=== PATIENT | female | born 1970 | race Caucasian/White ===

== ENCOUNTER 2016-10-26 01:23 | Emergency (ER) | payer OTHER ==
[~2016-10-26] VITALS: Ht 165.1 cm; Wt 77.1 kg
[~2016-10-26 01:23] MED LIST: ESTR0.623
--- NOTE | 2016-10-26 01:35 | NUR ---
PT C/O TOOTH ACHE X2 DAYS. PT HERE FOR WORSENING PAIN 10/10 ACHING
[2016-10-26] MEDS ORDERED: KETOROLAC TROMETHAMINE 60 MG INJ IM ONE ×2 (01:45→01:56)
[2016-10-26] MEDS ORDERED: HYDROCODONE/APAP 10-325 MG TABLET PO ONE (01:45)
[2016-10-26] MEDS ORDERED: HYDROCODONE/APAP 10-325 MG TABLET ONE (01:56)
[2016-10-26] MEDS ORDERED: PENICILLIN G BENZATHINE 2.4 MMU/4 ML DISP.SYRIN IM ONE (02:02)
--- NOTE | 2016-10-26 02:10 | NUR ---
DR RENE REQUESTING FOR PENICILLIN G BENZATHINE 1.2MMU IM. ONLY AVAILABLE DOSE IS PENICILLIN 2.4MMU/4ML. DR RENE OK TO GIVE PENICILLIN G 2.4MMU IM AND WASTE 1.2MMU(2ML) AND GIVE THE OTHER HALF OF PENICILLIN 1.2MMU(2ML). GAVE 1.2MMU IM LEFT BUTTOCK AT 0202
--- NOTE | 2016-10-26 02:53 | NUR ---
Patient discharged to home in stable conditon WITH FRIEND TAKING PT HOME. Written and verbal after care instructions given. Patient verbalizes understanding of instructions. WALKED OUT OF ER WITH STEADY GAIT
[2016-10-26 02:54] VITALS: BP 128/89
== END 2016-10-26 02:56 | disposition home or self-care (01) ==
LOC: ER 01:24
DX: K08.89 Other specified disorders of teeth and supporting structures (principal); Z90.710 Acquired absence of both cervix and uterus; Z90.49 Acquired absence of other specified parts of digestive tract
CPT/HCPCS: A4663; J1885

== ENCOUNTER 2017-08-13 21:22 | Emergency (ER) | payer OTHER ==
--- NOTE | 2017-08-13 22:12 | NUR ---
No answer in WR
== END 2017-08-13 22:12 | disposition left against medical advice (07) ==
LOC: ER 21:23
DX: Z53.21 Procedure and treatment not carried out due to patient leaving prior to being seen by health care provider (principal)

== ENCOUNTER 2019-06-05 21:44 | Emergency (ER) | payer MEDICAID, OTHER ==
[~2019-06-05] VITALS: Ht 165.1 cm; Wt 68.0 kg
--- NOTE | 2019-06-05 22:08 | NUR ---
pt ambulating with steady gait. Family at bedside. A&O x4. c/o low back pain radiating to BLE that started today when patient was cleaning. able to move extremities. speech is clear and able to make needs known / follow commands. Breathing even and unlabored. Denies any SOB. denies any / GI distress
--- NOTE | 2019-06-05 22:20 | NUR ---
Dr. Mcmanus at bedside for MSE
[2019-06-05] MEDS ORDERED: ONDANSETRON ODT 4 MG TAB.RAPDIS ONE (22:29)
[2019-06-05] MEDS ORDERED: MORPHINE SULFATE 4 MG/1 ML DISP.SYRIN IM ONE (22:30)
[2019-06-05] MEDS ORDERED: MORPHINE SULFATE 4 MG/1 ML DISP.SYRIN ONE (22:30)
[2019-06-05] MEDS ORDERED: MORPHINE SULFATE 2 MG/1 ML DISP.SYRIN ONE (22:30)
[2019-06-05] MEDS ORDERED: ONDANSETRON ODT 4 MG TAB.RAPDIS SL ONE (22:30)
[2019-06-05] MEDS ORDERED: HYDROMORPHONE 1 MG/1 ML DISP.SYRIN IM ONE (23:30)
[2019-06-05] MEDS ORDERED: HYDROMORPHONE 1 MG/1 ML DISP.SYRIN ONE (23:31)
--- NOTE | 2019-06-06 00:17 | NUR ---
Patient discharged to home in stable conditon. patient ambulating with steady gait. Written and verbal after care instructions given. Instructed patient not to drive. Daughter present at bedside and stated that she will be driving. Patient and family verbalizes understanding of instructions.
[2019-06-06 00:18] VITALS: BP 114/66
== END 2019-06-06 00:17 | disposition home or self-care (01) ==
LOC: ER 21:44
DX: M54.41 Lumbago with sciatica, right side (principal); Z90.49 Acquired absence of other specified parts of digestive tract; Z90.710 Acquired absence of both cervix and uterus; Z90.89 Acquired absence of other organs; Z79.899 Other long term (current) drug therapy
CPT/HCPCS: 96372 ×2; 99283; J1170; J2270 ×2; A4663; Q0162

== ENCOUNTER 2021-06-04 03:23 | Emergency (ER) | payer MEDICAID ==
[~2021-06-04] VITALS: Ht 165.1 cm; Wt 81.6 kg
--- NOTE | 2021-06-04 03:39 | NUR ---
Dr Terry into eval patient.
[2021-06-04] MEDS ORDERED: CYCLOBENZAPRINE HCL 10 MG TABLET PO ONE (03:45)
[2021-06-04] MEDS ORDERED: ONDANSETRON ODT 4 MG TAB.RAPDIS SL ONE (03:45)
[2021-06-04] MEDS ORDERED: HYDROMORPHONE 1 MG/1 ML DISP.SYRIN IM ONE (03:45)
[2021-06-04] MEDS ORDERED: ONDA4TAB5 PO (03:46)
[2021-06-04] MEDS ORDERED: CYCL10TA9 PO (03:46)
[2021-06-04] MEDS ORDERED: HYDR-3980 PO (03:46)
[2021-06-04] MEDS ORDERED: CYCLOBENZAPRINE HCL 10 MG TABLET ONE (03:52)
[2021-06-04] MEDS ORDERED: ONDANSETRON ODT 4 MG TAB.RAPDIS ONE (03:52)
[2021-06-04] MEDS ORDERED: HYDROMORPHONE 2 MG/1 ML DISP.SYRIN ONE (03:53)
[2021-06-04 04:02] VITALS: BP 122/80
--- NOTE | 2021-06-04 04:02 | NUR ---
Patient discharged to home in stable condition with friend taking patient home. Written and verbal after care instructions given. Patient verbalizes understanding of instructions. Stressed follow up or return to ER for worsening s/s.
== END 2021-06-04 04:03 | disposition home or self-care (01) ==
LOC: ER 03:27
DX: M54.40 Lumbago with sciatica, unspecified side (principal); Z90.49 Acquired absence of other specified parts of digestive tract; Z90.710 Acquired absence of both cervix and uterus
CPT/HCPCS: 96372; 99283; J1170; A4663; Q0162